=== PATIENT | female | born 1970 | race Caucasian/White ===

== ENCOUNTER 2017-10-20 16:31 | Emergency (ER) | payer SELFPAY ==
[2017-10-20] MEDS ORDERED: AZITHROMYCIN 250 MG TABLET PO ONE (17:58)
[2017-10-20] MEDS ORDERED: LIDOCAINE 1% INJ-PF (10 MG/ML) 30 ML SDV INJ ONE (17:58)
[2017-10-20] MEDS ORDERED: CEFTRIAXONE INJ 250 MG VIAL IM ONE (17:58)
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
[2017-10-20 20:43] LABS: URINE BARBITURATES SCREEN NEGATIVE; URINE METHADONE SCREEN NEGATIVE; URINE OPIATES LOW NEGATIVE; URINE PHENCYCLIDINE SCREEN NEGATIVE
[2017-10-20 21:49] VITALS: BP 100/72
== END 2017-10-20 22:30 | disposition home or self-care (01) ==
LOC: ER 16:31
DX: T76.21XA Adult sexual abuse, suspected, initial encounter (principal)
CPT/HCPCS: 99285; 96372; 87210; 81025; 80307; 87491; 87591; J3490; J0696